=== PATIENT | female | born 1980 | race African-American/Black ===

== ENCOUNTER 2017-02-23 21:20 | Inpatient (IN) | payer OTHER ==
[~2017-02-23] VITALS: Ht 160 cm; Wt 51.3 kg
[2017-02-23 22:28] LABS: BASOPHIL 0.1 % (0-2); EOSINOPHIL 0.1 % (0-5); HCT 32.4 % (37.0-47.0); HGB 11.3 g/dl (12.5-16.0); MCH 30.1 pg (25.0-31.0); MCHC 34.9 g/dL (32.0-36.0); MCV 86.4 fL (78.0-100.0); MONOCYTE 11.5 % (0-12); MPV 10.5 fL (6.0-9.5); NEUTROPHIL 79.3 % (41-80); PLT 181 K/uL (150-400); RBC 3.75 M/uL (4.20-5.40); RDW 11.8 % (11.5-14.0); WBC 8.5 K/uL (4.0-10.5)
[2017-02-23 22:39] LABS: BILIRUBIN NEGATIVE (NEGATIVE); BLOOD 2+ Ery/uL (NEGATIVE); CLARITY CLEAR (CLEAR); COLOR YELLOW (YELLOW); GLUCOSE (U) NORMAL (NORMAL); KETONE (U) 1+ (SMALL) mg/dL (NEGATIVE); LEUKOCYTES 2+ Leu/uL (NEGATIVE); NITRITE NEGATIVE (NEGATIVE); PROTEIN 2+ mg/dL (NEGATIVE); UROBILINOGEN >=8.0 mg/dL (0.2-1.0)
[2017-02-23 22:44] LABS: URINARY WBC 20-50
[2017-02-23 22:45] LABS: BACTERIA 2+
[2017-02-23 22:46] LABS: ALBUMIN 3.8 g/dL (3.5-5.0); BILIRUBIN - TOTAL 0.9 mg/dL (0.1-1.0); CREATININE 0.8 mg/dL (0.5-1.0); GLOBULIN (CALCULATION) 2.9 g/dL (2.2-4.2); LACTIC ACID 0.6 mmol/L (0.5-2.2); POTASSIUM 2.9 mmol/L (3.5-5.1); TOTAL PROTEIN 6.7 g/dL (6.4-8.3)
[2017-02-24 08:50] LABS: BASOPHIL 0.1 % (0-2); EOSINOPHIL 0 % (0-5); HCT 30.6 % (37.0-47.0); HGB 10.4 g/dl (12.5-16.0); LYMPHOCYTE 6.7 % (15-48); MCH 29.7 pg (25.0-31.0); MCV 87.4 fL (78.0-100.0); MONOCYTE 10.4 % (0-12); MPV 10.2 fL (6.0-9.5); NEUTROPHIL 82.8 % (41-80); PLT 172 K/uL (150-400); RDW 11.9 % (11.5-14.0); WBC 6.8 K/uL (4.0-10.5)
[2017-02-24 09:10] LABS: CREATININE 0.7 mg/dL (0.5-1.0); POTASSIUM 3.9 mmol/L (3.5-5.1)
--- NOTE | 2017-02-24 10:23 | NUR ---
ULTRA SOUND ON THE UNIT TO PREFORM U/S PT VERBALIZED TO TECH SHE WAS UNSURE TO WHY THE ULTRASOUND WAS BEING PREFORMED- IF SHE WAS SHE WAS GOING TO KEEP THE BABY AND NOT HAVE A D&C CALL PLACED TO DR SANCHEZ INFORMED HER ULTRASOUND WAS BEING DONE AND WHAT THE PT VERBALIZED DR SANCHEZ STATES SHE WILL BE ON THE UNIT AT APPROXIMATELY 12 NOON TO TALK WITH PT
[2017-02-24 11:43] LABS: BILIRUBIN NEGATIVE (NEGATIVE); BLOOD 3+ Ery/uL (NEGATIVE); CLARITY CLOUDY (CLEAR); COLOR RED (YELLOW); GLUCOSE (U) NORMAL (NORMAL); KETONE (U) 2+ (MODERATE) mg/dL (NEGATIVE); LEUKOCYTES 1+ Leu/uL (NEGATIVE); NITRITE POSITIVE (NEGATIVE); PROTEIN 2+ mg/dL (NEGATIVE); pH 6.5 (5.0-9.0)
[2017-02-24 11:49] LABS: URINARY RBC TNTC
[2017-02-25 05:44] LABS: HCT 31.7 % (37.0-47.0); HGB 10.7 g/dl (12.5-16.0); MCH 29.6 pg (25.0-31.0); MCHC 33.8 g/dL (32.0-36.0); MCV 87.6 fL (78.0-100.0); MPV 10.7 fL (6.0-9.5); RBC 3.62 M/uL (4.20-5.40); RDW 12.1 % (11.5-14.0); WBC 4.8 K/uL (4.0-10.5)
[2017-02-25 06:11] LABS: CREATININE 0.7 mg/dL (0.5-1.0); POTASSIUM 3.6 mmol/L (3.5-5.1)
[2017-02-26 04:57] LABS: HCT 30.7 % (37.0-47.0); HGB 10.3 g/dl (12.5-16.0); MCH 29.1 pg (25.0-31.0); MCHC 33.6 g/dL (32.0-36.0); MCV 86.7 fL (78.0-100.0); MPV 10.8 fL (6.0-9.5); RBC 3.54 M/uL (4.20-5.40); RDW 11.9 % (11.5-14.0); WBC 4.4 K/uL (4.0-10.5)
[2017-02-26 05:15] LABS: CREATININE 0.7 mg/dL (0.5-1.0); POTASSIUM 3.6 mmol/L (3.5-5.1)
--- NOTE | 2017-02-26 17:57 | NUR ---
PATIENT LAYING IN BED, HAS BED UP OFF THE FLOOR ALL THE WAY, DISCUSEED SAFETY CONCERNS AND SHE REFUSED TO PUT BED DOWN STATING SHE WAS COMFORTABLE. AGAIN I DISCUSSED THE SAFETY CONCERNS OF FALLING OUT OF BED. SHE STATES SHE "WON'T FALL"
[2017-02-27 05:02] LABS: HCT 28.5 % (37.0-47.0); HGB 9.5 g/dl (12.5-16.0); MCH 29.1 pg (25.0-31.0); MCHC 33.3 g/dL (32.0-36.0); MCV 87.2 fL (78.0-100.0); MPV 10.6 fL (6.0-9.5); RBC 3.27 M/uL (4.20-5.40); RDW 11.9 % (11.5-14.0)
[2017-02-27 05:22] LABS: CREATININE 0.7 mg/dL (0.5-1.0); POTASSIUM 3.8 mmol/L (3.5-5.1)
[2017-02-27] MEDS ORDERED: FEOSOL325 MG PO (13:40)
[2017-02-27] MEDS ORDERED: AUGMENTIN 500-1 EACH PO (13:40)
== END 2017-02-27 14:28 | disposition home or self-care (01) | DRG 872 ==
LOC: FER 21:20 → FMS 23:10
PROVIDERS: Emergency Medicine Emergency Medical Services; Internal Medicine; ADMIT Obstetrics & Gynecology
DX: A41.9 Sepsis, unspecified organism (principal); O03.9 Complete or unspecified spontaneous abortion without complication; O23.40 Unspecified infection of urinary tract in pregnancy, unspecified trimester; Z3A.00 Weeks of gestation of pregnancy not specified
CPT/HCPCS: 36415; 76770; 76817; 80048; 80053; 81001; 83605; 84702; 84703; 85025; 86900; 86901; 87040; 87088; 87210; J1580; J2916

== ENCOUNTER 2021-04-24 09:11 | Emergency (ER) | payer OTHER ==
[~2021-04-24 09:11] MED LIST: AUGMENTIN 500-1 EACH PO; FEOSOL325 MG PO; NAPROXEN500 MG PO
[2021-04-24] MEDS ORDERED: MIRALAX 238GM238 GM PO (11:11)
[2021-04-24] MEDS ORDERED: ANUCORT-HC25 M1 PR (11:11)
[2021-04-24] MEDS ORDERED: METAMUCIL0.52 GM PO (11:11)
== END 2021-04-24 11:19 | disposition home or self-care (01) ==
LOC: FER 09:11
DX: K62.89 Other specified diseases of anus and rectum (principal); K59.00 Constipation, unspecified; Z88.2 Allergy status to sulfonamides; Z87.891 Personal history of nicotine dependence
CPT/HCPCS: 74018